=== PATIENT | female | born 1945 | race Caucasian/White ===

== ENCOUNTER 2021-07-02 13:59 | Outpatient (CLI) | payer MEDICARE, OTHER | END 2021-07-02 14:00 | disposition home or self-care (01) | LOC: CSHULT 13:59 | PROVIDERS: ATTEND Family Medicine | DX: R60.0 Localized edema (principal) ==

== ENCOUNTER 2023-10-13 13:13 | Emergency (ER) | payer MEDICARE ==
[~2023-10-13 13:13] MED LIST: Iopamidol 370 76% 100 ML VIAL ONE
[2023-10-13 13:51] LABS: ALT (SGPT) 13 U/L (8-55); AST (SGOT) 23 U/L (5-34); Albumin 3.6 g/dL (3.4-4.8); Alkaline Phosphatase 65 U/L (40-110); Anion Gap 14 mmol/L (10-20); BUN (Urea Nitrogen) 15 mg/dL (9.8-20.1); Bilirubin, Total 1.2 mg/dL (0.2-1.2); Calc. Creatinine Clearance 0 mL/min (70-130); Calcium 8.8 mg/dL (7.8-10.44); Carbon Dioxide 25 mmol/L (23-31); Chloride 94 mmol/L (98-107); Estimated GFR 58; Globulin 3.2 g/dL (2.4-3.5); Glucose 113 mg/dL (83-110); Lipase 19 U/L (8-78); Potassium 3.6 mmol/L (3.5-5.1); Protein, Total 6.8 g/dL (5.8-8.1); Sodium 129 mmol/L (136-145)
[2023-10-13 13:52] LABS: #Basophils 0.03 10x3/uL (0.0-0.2); #Monocytes 0.68 10x3/uL (0.0-1.1); #Neutrophils 3.56 10x3/uL (1.5-8.4); %Basophils 0.5 % (0.0-2.0); %Eosinophils 1.5 % (0.0-6.0); %Lymphocytes 33.6 % (18.0-47.0); %Monocytes 10.3 % (0.0-10.0); %Neutrophils 53.8 % (40.0-75.0); Hematocrit 37.8 % (34.9-44.5); Hemoglobin 13.3 g/dL (12.0-15.5); Mean Corpuscular HGB CONC 35.2 g/dL (32.0-36.0); Mean Corpuscular Hemoglobin 32.1 pg (27.0-33.0); Mean Corpuscular Volume 91.3 fL (81.6-98.3); Mean Platelet Volume 10.1 fL (7.4-10.4); Platelet Count 186 10x3/uL (150-450); RBC Distribution Width 13.2 % (11.5-14.5); Red Blood Cell (RBC) Count 4.14 10x6/uL (3.90-5.03); White Blood Cell (WBC) Count 6.6 10x3/uL (3.5-10.5)
[2023-10-13 13:59] LABS: INR-International Normal Ratio 1.2; PTT 29.9 sec (22.0-33.0); Prothrombin Time 13.1 sec (9.5-12.1)
[2023-10-13] MEDS ORDERED: Ondansetron PF 4 MG/2 ML Vial ONE (14:00)
[2023-10-13 14:50] LABS: Bilirubin Neg (Negative); Blood, Urine 10 (Negative); Clarity Clear (Clear); Glucose, Urine (Dipstick) Normal (Negative); Ketone, Urine Negative (Negative); Leukocyte 500 (Negative); Nitrite Negative (Negative); Protein, Urine (Dipstick) 30 mg/dl (Neg-Trace); Urobilinogen Normal mg/dL (Less than 2); pH, Urine 6.5 (5.0-9.0)
[2023-10-13 15:10] LABS: RBC/HPF 0-3 HPF (0-3)
[2023-10-13 15:11] LABS: Bacteria/HPF 2+ HPF (None Seen); CAUTI Indications for Culture Alt mental st,lethar; Calcium Oxalate Crystals 1+ HPF (None Seen); WBC/HPF 21-50 HPF (0-3)
[2023-10-13 15:12] LABS: Urine Culture Reflex Yes Yes
[2023-10-13] MEDS ORDERED: cefTRIAXone (ROCEPHIN) 1 GM VIAL ONE (15:23)
[2023-10-13 17:24] LABS: Troponin I Less than 0.010 ng/mL (< 0.028)
== END 2023-10-13 17:20 | disposition short-term general hospital (02) ==
LOC: CSHERS 13:13
DX: N30.00 Acute cystitis without hematuria (principal); R55 Syncope and collapse; R53.1 Weakness; I10 Essential (primary) hypertension
CPT/HCPCS: 0042T; 70450; 71045; 80053; 81001; 82550; 82962; 83690; 84484 ×2; 85025; 85610; 85730; 87086; 93005; J0696; J2405; 36415; 36416; 96361; 96365; 96375; Q9967